=== PATIENT | male | born 1970 | race Caucasian/White ===

== ENCOUNTER 2017-09-21 12:42 | Emergency (ER) | payer OTHER, MEDICAID ==
[~2017-09-21] VITALS: Ht 175.3 cm; Wt 115.2 kg
[2017-09-21 12:45] VITALS: Ht 175.3 cm; Wt 115.2 kg
[2017-09-21 15:35] VITALS: BP 167/106
== END 2017-09-21 15:30 | disposition home or self-care (01) ==
LOC: ED 12:42
DX: S63.502A Unspecified sprain of left wrist, initial encounter (principal); M25.572 Pain in left ankle and joints of left foot; L40.9 Psoriasis, unspecified; W10.9XXA Fall (on) (from) unspecified stairs and steps, initial encounter; Y93.89 Activity, other specified; Y92.89 Other specified places as the place of occurrence of the external cause; Y99.8 Other external cause status